=== PATIENT | female | born 1945 | race Two or more races ===

== ENCOUNTER 2022-10-01 14:05 | Emergency (ER) | payer OTHER ==
[~2022-10-01] VITALS: Ht 149.9 cm; Wt 77.2 kg
[2022-10-01] MEDS ORDERED: SODIUM CHLORIDE 0.9% 1,000 ML IV ONE (15:30)
[2022-10-01 15:57] VITALS: BP 161/83
== END 2022-10-01 15:55 | disposition left against medical advice (07) ==
LOC: EDBD 14:05 → ER 14:05
DX: R53.1 Weakness (principal); E78.5 Hyperlipidemia, unspecified; I10 Essential (primary) hypertension